=== PATIENT | female | born 1995 | race Caucasian/White ===

== ENCOUNTER 2017-05-29 12:36 | Emergency (ER) | payer MEDICAID, OTHER ==
[~2017-05-29] VITALS: Ht 162.6 cm; Wt 112.0 kg
[~2017-05-29 12:36] MED LIST: PREN1CAP20 PO
[2017-05-29 12:53] VITALS: BP 95/54; PULSE 117
[2017-05-29 13:00] VITALS: RESP 18; TEMP 98.2
--- NOTE | 2017-05-29 13:33 | PD ---
HPI Chief Complaint pelvic pressure Date Seen: May 29, 2017 Time Seen: 13:15 Travel History International Travel<30 Days: No Contact w/Intl Traveler<30Days: No Known Affected Area: No History of Present Illness HPI 22y/o @ 35.0wks. [facility] with [facility]. She presents today with c/o pelvic pressure. No LOF, VB, ctx. +FM. She recently lost her mucus plug. Pt has a h/o CS x1 (NRFHTs) 11m ago. She is for rCS due to short interval. Weeks Gestation: 35 Para: 1 : 2 History Past Medical History Narrative Medical epilepsy (sz free and off meds x10yrs) Obstetric History Obstetric History 1. CS at term 2. current Past Surgical History Narrative Surgical CS x1 tonsillectomy Family History Family History: Negative Social History Alcohol Use: No Tobacco Use: No Substance Abuse: No Allergies-Medications (Allergen,Severity, Reaction): Coded Allergies: latex (Verified Allergy, Mild, 03/22/17) Home Meds Active Scripts W/O Vit A W/ Fe Carbo (Prenate Mini 18-0.6-0.4-350 mg) 18 Mg Iron-1 Mg- 350 Mg Cap, 1 TAB PO DAILY, #30 BOTTLE 11 Refills Prov:Glenis Perkins 03/22/17 Review of Systems Except as stated in HPI: all other systems reviewed are Neg Physical Exam Narrative General: well developed, well nourished, no acute distress HEENT: normocephalic atraumatic, extraocular movements intact, neck supple Abdomen: soft, gravid, nontender, nondistended Uterus: fundus above umbilicus Extremities: full range of motion Skin: normal coloration, no rashes, no suspicious skin lesions noted Neurologic: cranial nerves 2-12 grossly intact, normal muscle tone, normal gait Psychiatric: normal mood and affect, appropriate FHTs: 130s, +accels, no decels, moderate variability, reactive Rayne: quiet Data Data Vital Signs Reviewed: Yes Orders Orders Vital Signs (Adult) .ON ADMISSION (05/29/17 13:14) ^ Labor Status (05/29/17 13:14) Urinalysis - C+S If Indicated (05/29/17 13:14) ^ Non Stress Test (05/29/17 13:14) MDM Plan 22y/o @ 35.0wks with pelvic pressure, h/o CSx1, short interval. -- NST quiet -- UA neg for UTI (+protein but no blood and BPs 90/50s) -- cat 1 tracing Dispo: stable for d/c home with precautions Diagnosis Diagnosis: Primary Impression: 35 weeks gestation of Additional Impression: Pelvic pressure in Chloe Olmos MD May 29, 2017 13:33
== END 2017-05-29 13:58 | disposition home or self-care (01) ==
LOC: HOBED 12:36
DX: O26.893 Other specified pregnancy related conditions, third trimester (principal); R10.2 Pelvic and perineal pain; Z3A.35 35 weeks gestation of pregnancy
CPT/HCPCS: 59025

== ENCOUNTER 2017-06-20 10:19 | Emergency (ER) | payer MEDICAID ==
[2017-06-20 10:42] VITALS: BP 107/60; PULSE 99
--- NOTE | 2017-06-20 11:12 | PD ---
HPI Chief Complaint decreased movement and contractions Date Seen: Jun 20, 2017 Time Seen: 10:50 Travel History International Travel<30 Days: No Contact w/Intl Traveler<30Days: No Known Affected Area: No History of Present Illness HPI Ms. Lucio is a 22-year-old at 38/1 weeks gestation presenting to the OB ED today due to concerns about decreased movement and contractions. She stated that the contractions started at 1 AM this morning and increased in frequency at 7 AM. She also states that she has not felt the baby move for 2 days. However, has not felt the baby move at all today. No vaginal bleeding, no leakage of fluids, no dysuria, no chest pain, no shortness of breath, no leg pain. Weeks Gestation: 38 Para: 1 : 3 History Past Medical History Narrative Medical Epilepsy Obstetric History Obstetric History First ended in a spontaneous Son born by due to nonreassuring heart tracing Past Surgical History Narrative Surgical Tonsillectomy Family History Family History: Negative Social History Narrative Social History Lives with her son and her significant other Works at [employer] Denies alcohol, tobacco, or illicit drug use Allergies-Medications (Allergen,Severity, Reaction): Coded Allergies: latex (Verified Allergy, Mild, 03/22/17) Home Meds Active Scripts W/O Vit A W/ Fe Carbo (Prenate Mini 18-0.6-0.4-350 mg) 18 Mg Iron-1 Mg- 350 Mg Cap, 1 TAB PO DAILY, #30 BOTTLE 11 Refills Prov:Glenis Perkins 03/22/17 Review of Systems General / Constitutional: No: Fever, Chills Eyes: No: Blurred Vision HENT: No: Headaches Cardiovascular: No: Chest Pain or Discomfort Respiratory: No: Short of Breath Gastrointestinal: Abdominal Pain, No: Nausea, Vomiting Genitourinary: No: Dysuria Musculoskeletal: No: Weakness Skin: No Rash Physical Exam Narrative GENERAL: Well-nourished, well-developed patient. SKIN: Warm and dry. HEAD: Normocephalic and atraumatic. EYES: No scleral icterus. No injection or drainage. ENT: No nasal drainage noted. Mucous membranes pink. Airway patent. NECK: Supple, trachea midline. No JVD. CARDIOVASCULAR: Regular rate and rhythm without murmurs, gallops, or rubs. RESPIRATORY: Breath sounds equal bilaterally. No accessory muscle use. BREASTS: Bilateral exam showed no masses , no retractions, no nipple discharge. ABDOMEN/GI: Abdomen soft, non-tender, bowel sounds present, no rebound, no guarding Gravid to 38 weeks size GENITOURINARY: External Genitalia: intact and normal in appearance Cervix: posterior Dilatation: 1 Effacement: 0 Station: -3 Membranes: intact Uterine Contractions: yes FHT's: Category: 1 Baseline: 140s Reactive: yes Variability: moderate Decels: none EXTREMITIES: No cyanosis or edema. BACK: Nontender without obvious deformity. No CVA tenderness. NEUROLOGICAL: Awake and alert. Motor and sensory grossly within normal limits. Five out of 5 muscle strength in all muscle groups. Normal speech. Data Data Orders Orders Vital Signs (Adult) .ON ADMISSION (06/20/17 10:59) ^ Labor Status (06/20/17 10:59) ^ Non Stress Test (06/20/17 10:59) Us Ob Bpp Wo Nst (06/20/17 11:01) MDM Plan 22-year-old at 30/1 weeks Cervix is closed thick and high Category 1 FHT Will obtain a BPP to assess for movement- 11/16 Diagnosis Diagnosis: Primary Impression: 38 weeks gestation of Disposition: DISCHARGE HOME Condition: Stable Barbara Granados MD R1 Jun 20, 2017 11:12
== END 2017-06-20 14:20 | disposition home or self-care (01) ==
LOC: HOBED 10:19
DX: O36.8130 Decreased fetal movements, third trimester, not applicable or unspecified (principal); O99.353 Diseases of the nervous system complicating pregnancy, third trimester; G40.909 Epilepsy, unspecified, not intractable, without status epilepticus; Z3A.38 38 weeks gestation of pregnancy
CPT/HCPCS: 59025; 76816; 76819